=== PATIENT | male | born 1960 | race Caucasian/White ===

== ENCOUNTER → 2021-09-01 08:11 | Outpatient (CLI) | payer OTHER, SELFPAY ==
[2021-09-01 08:54] LABS: COVID19 -Nasal RAPID POSITIVE (Negative)
== END ==
PROVIDERS: Visit Provider Nurse Practitioner Family
DX: Z20.822 Contact with and (suspected) exposure to COVID-19 (principal)
CPT/HCPCS: 87635

== ENCOUNTER → 2023-10-11 12:51 | Outpatient (CLI) | payer OTHER, SELFPAY ==
--- NOTE | 2023-10-11 12:53 | DI.US.S_ITS ---
PROCEDURE: US RENAL COMPLETE INDICATIONS: PAIN, R/O HERNIA TECHNIQUE: Real-time scanning was performed of the kidneys and bladder, with image documentation. COMPARISON: None. FINDINGS: Kidneys: Kidneys are normal in size. Right kidney measures 10.4 cm long; left kidney measures 11.2 cm long. Right renal cortical thickness is 1.2 cm; left renal cortical thickness is 1.5 cm. Renal cortical echotexture is normal. No hydronephrosis or nephrolithiasis. No suspicious solid mass lesions. Bladder: Pre-void bladder volume is 122 mL. Post-void residual is 50 mL. Pre-void images demonstrate no intraluminal masses or stones. On pre-void images, bilateral ureteral jets are noted with color Doppler interrogation. (Of note, ureteral jets may not be detectable in up to 25% of cases due to insufficient differences in specific gravity between ureteral and bladder urine). Miscellaneous: No free pelvic fluid. IMPRESSION: 1. No hydronephrosis. 2. Moderate postvoid residual. Dictated by: Candice Duran M.D. on 10/11/2023 at 14:00 Approved by: Candice Duran M.D. on 10/11/2023 at 14:14
== END ==
LOC: US 12:52
PROVIDERS: PCP Family Medicine; Referring Provider Family Medicine; Visit Provider Family Medicine
DX: R10.2 Pelvic and perineal pain (principal); R39.89 Other symptoms and signs involving the genitourinary system
CPT/HCPCS: 76770

== ENCOUNTER → 2024-01-20 07:36 | Outpatient (CLI) | payer OTHER, SELFPAY ==
--- NOTE | 2024-01-20 07:38 | DI.RAD.S_ITS ---
PROCEDURE: XR HIP W PEL IF DONE BILAT 2V INDICATIONS: HIP PAIN BOTH TECHNIQUE: 2 views of the hip were acquired. COMPARISON: None. FINDINGS: Bones: Mild bilateral degenerative changes. Lumbosacral degenerative changes also present. No acute displaced fracture or dislocation. Soft tissues: No suspicious calcifications. IMPRESSION: Mild hip arthrosis bilaterally. No acute radiographic abnormality. If there is high concern for further derangement, consider MRI evaluation. Dictated by: Eriberto Segovia M.D. on 01/20/2024 at 12:58 Approved by: Eriberto Segovia M.D. on 01/20/2024 at 12:58
== END ==
PROVIDERS: PCP Family Medicine; Referring Provider Family Medicine; Visit Provider Family Medicine
DX: M16.0 Bilateral primary osteoarthritis of hip (principal); M25.551 Pain in right hip; M25.552 Pain in left hip
CPT/HCPCS: 73521